=== PATIENT | female | born 1990 | race Two or more races ===

== ENCOUNTER 2020-10-17 14:06 | Emergency (ER) | payer MEDICAID, MEDICARE ==
[~2020-10-17] VITALS: Ht 165.1 cm; Wt 60.3 kg
[2020-10-17 14:09] VITALS: BP 129/89
[2020-10-17] MEDS ORDERED: Ketorolac 30mg Inj IV ONE (14:30)
--- NOTE | 2020-10-17 14:33 | Emergency Room Report ---
History of Present Illness General Chief Complaint: Abdominal Pain Source: Patient Present Illness HPI Patient is a 30-year-old female denies any significant past medical history who presents to the ER co abdominal pain, nausea, non-bloody vomitus x 2 days. She states that the pain is on the right lower side and is worried that it is coming from her ovaries. She denies fever but co chills. She co mild generalized GAMEZ, no blurry vision, no focal weakness. Denies chest pain, sob, or cough. She denies any sick contacts. LMP 2 weeks ago. Denies dysuria or hematuria. HO appendectomy. 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 COVID-19 Screening: Negative COVID-19 COVID-19 Testing Source: nasal Patient History Last Menstrual Period: last week Now: No Reviewed Nursing Documentation: PMH: Agreed; PSxH: Agreed Nursing Documentation-PMH Past Medical History: No Stated History Review of Systems All Other Systems: negative except mentioned in HPI Physical Exam Vital Signs Date Time Temp Pulse Resp B/P (MAP) Pulse Ox O2 Delivery O2 Flow Rate FiO2 10/17/20 14:09 98.8 105 21 129/89 (102) 95 Room Air Sp02 EP Interpretation: reviewed, normal General Appearance: alert, GCS 15, non-toxic, mild distress, other - tearful Head: normocephalic, atraumatic Eyes: bilateral eye normal inspection, bilateral eye PERRL ENT: hearing grossly normal, normal pharynx, no angioedema, normal voice Neck: full range of motion, supple/symm/no masses Respiratory: chest non-tender, lungs clear, normal breath sounds, speaking full sentences Cardiovascular #1: regular rate, rhythm, no edema Gastrointestinal: other - Right suprapubic tenderness to palpation with no guarding or rebound tenderness Rectal: deferred Musculoskeletal: normal range of motion Neurologic: roving technician III-XII nml as tested, oriented x3 Psychiatric: no suicidal/homicidal ideation Skin: no rash Lymphatic: no adenopathy Medical Decision Making Diagnostic Impression: Primary Impression: Ovarian cyst Additional Impression: Leukocytosis ER Course Patient presents with lower abdominal pain and leukocytosis. Ultrasound demonstrates ovarian cyst no evidence for torsion. Patient has free fluid within the cul-de-sac. Likely ruptured cyst causing patient's pain. Patient given IV pain medication as well as antiemetics. Patient advised to follow-up with [facility]. After discussing risks and benefits of further diagnostics, treatment plans, as well as indications for and risks of admission, the patient is agreeable to being discharged home. I have explained that their evaluation and treatment in the emergency department today is an important step towards them achieving better health but that their evaluation today is not intended to replace further evaluation and treatment by a physician in their local clinic. I have explained that while the current findings suggest no immediate life threatening emergency they will require further evaluation and treatment by a physician of their choice in their area. They understand that it will be necessary for them to review the final reports of their ED visit with their clinic physician. We have reviewed indications for return to the Emergency Department. I have explained that additional time may need to pass and/or additional testing as an outpatient may be necessary before a definitive diagnosis can be made. They tell me they are willing to follow up as instructed within the timeframe I recommend. They appear to understand what we discussed. Additionally they understand that if they are unable to be seen by an outpatient physician they are welcome, and in fact should, return to the Emergency Department for a repeat evaluation. The patient is stable at time of discharge. Laboratory Tests Test 10/17/20 14:20 White Blood Count 19.4 K/UL (4.8-10.8) H Red Blood Count 4.80 M/UL (4.20-5.40) Hemoglobin 13.6 G/DL (12.0-16.0) Hematocrit 41.6 % (37.0-47.0) Mean Corpuscular Volume 87 FL (80-99) Mean Corpuscular Hemoglobin 28.3 PG (27.0-31.0) Mean Corpuscular Hemoglobin Concent 32.7 G/DL (32.0-36.0) Red Cell Distribution Width 12.9 % (11.6-14.8) Platelet Count 229 K/UL (150-450) Mean Platelet Volume 10.1 FL (6.5-10.1) Neutrophils (%) (Auto) 86.2 % (45.0-75.0) H Lymphocytes (%) (Auto) 8.0 % (20.0-45.0) L Monocytes (%) (Auto) 4.7 % (1.0-10.0) Eosinophils (%) (Auto) 0.8 % (0.0-3.0) Basophils (%) (Auto) 0.3 % (0.0-2.0) Urine Color Pale yellow Urine Appearance Slightly cloudy Urine pH 6 (4.5-8.0) Urine Specific Ericson 1.010 (1.005-1.035) Urine Protein Negative (NEGATIVE) Urine Glucose (UA) Negative (NEGATIVE) Urine Ketones Negative (NEGATIVE) Urine Blood 2+ (NEGATIVE) H Urine Nitrite Negative (NEGATIVE) Urine Bilirubin Negative (NEGATIVE) Urine Urobilinogen Normal MG/DL (0.0-1.0) Urine Leukocyte Esterase Negative (NEGATIVE) Urine RBC 0-2 /HPF (0 - 2) Urine WBC 0 /HPF (0 - 2) Urine Squamous Epithelial Cells Few /LPF (NONE/OCC) Urine Bacteria Few /HPF (NONE) Urine HCG, Qualitative Negative (NEGATIVE) Sodium Level 142 MMOL/L (136-145) Potassium Level 3.6 MMOL/L (3.5-5.1) Chloride Level 106 MMOL/L (98-107) Carbon Dioxide Level 27 MMOL/L (21-32) Anion Gap 9 mmol/L (5-15) Blood Urea Nitrogen 8 mg/dL (7-18) Creatinine 0.6 MG/DL (0.55-1.30) Estimated Glomerular Filtration Rate > 60 mL/min (>60) Glucose Level 84 MG/DL (74-106) Calcium Level 8.6 MG/DL (8.5-10.1) Magnesium Level 1.8 MG/DL (1.8-2.4) Total Bilirubin 0.5 MG/DL (0.2-1.0) Aspartate Amino Transferase (AST) 22 U/L (15-37) Alanine Aminotransferase (ALT) 44 U/L (12-78) Alkaline Phosphatase 68 U/L (46-116) Total Protein 7.6 G/DL (6.4-8.2) Albumin 4.1 G/DL (3.4-5.0) Globulin 3.5 g/dL Albumin/Globulin Ratio 1.2 (1.0-2.7) Lipase 196 U/L (73-393) Urine Opiates Screen Negative (NEGATIVE) Urine Barbiturates Screen Negative (NEGATIVE) Phencyclidine (PCP) Screen Negative (NEGATIVE) Urine Amphetamines Screen Negative (NEGATIVE) Urine Benzodiazepines Screen Negative (NEGATIVE) Urine Cocaine Screen Negative (NEGATIVE) Urine Marijuana (THC) Screen Positive (NEGATIVE) H Rhythm Strip Diag. Results Rhythm Strip Time: 14:33 EP Interpretation: yes - Laly Victoria MD Rate: 79 bpm Rhythm: NSR, no PVC's, no ectopy Last Vital Signs Date Time Temp Pulse Resp B/P (MAP) Pulse Ox O2 Delivery O2 Flow Rate FiO2 10/17/20 14:09 98.8 105 21 129/89 (102) 95 Room Air Disposition: HOME, SELF-CARE Condition: Stable Scripts Oxycodone/Acetaminophen 5-325* (PERCOCET 5-325 MG TABLET*) 1 Each Tablet 1 TAB ORAL Q4H PRN for For Pain, #10 TAB 0 Refills Prov: Laly Victoria M.D. 10/17/20 Ondansetron* (ZOFRAN*) 4 Mg Tablet 4 MG ORAL Q6H PRN for Nausea & Vomiting, #14 TAB Prov: Laly Victoria M.D. 10/17/20 Ibuprofen* (MOTRIN*) 600 Mg Tablet 600 MG ORAL FOUR TIMES A DAY, #30 TAB 0 Refills Prov: Laly Victoria M.D. 10/17/20 Referrals: [facility],REFERRING (PCP) Additional Instructions: The patient was provided with discharge instructions, notified to follow-up with a primary care doctor and or specialist in the next 24-48 hours, and to return to the ED if they have worsening of their symptoms. Please note that this report is being documented using [employer] technology. This can lead to erroneous entry secondary to incorrect interpretation by the dictating instrument. Laly Victoria M.D. Oct 17, 2020 14:33
[2020-10-17] MEDS ORDERED: fentaNYL 100 mcg/2 mL IV ONE (15:15)
[2020-10-17 15:19] LABS: APPEARANCE,URINE SLIGHTLY CLOUDY; BILIRUBIN, URINE NEGATIVE (NEGATIVE); COLOR,URINE PALE YELLOW; GLUCOSE, URINE (UA) NEGATIVE (NEGATIVE); KETONES,URINE NEGATIVE (NEGATIVE); LEUKOCYTE ESTERASE ,URINE NEGATIVE (NEGATIVE); NITRITE,URINE NEGATIVE (NEGATIVE); PH,URINE 6 (4.5-8.0); PROTEIN,URINE NEGATIVE (NEGATIVE); UROBILINOGEN,URINE NORMAL MG/DL (0.0-1.0)
[2020-10-17 15:27] LABS: ANION GAP 9 mmol/L (5-15); BLOOD UREA NITROGEN 8 mg/dL (7-18); CALCIUM 8.6 MG/DL (8.5-10.1); CARBON DIOXIDE 27 MMOL/L (21-32); CHLORIDE 106 MMOL/L (98-107); CREATININE 0.6 MG/DL (0.55-1.30); POTASSIUM 3.6 MMOL/L (3.5-5.1); SODIUM 142 MMOL/L (136-145)
[2020-10-17 15:31] LABS: ALANINE AMINOTRANSFERASE 44 U/L (12-78); ALBUMIN 4.1 G/DL (3.4-5.0); ALBUMIN/GLOBULIN RATIO 1.2 (1.0-2.7); ALKALINE PHOSPHATASE 68 U/L (46-116); ASPARTATE AMINO TRANSFERASE 22 U/L (15-37); BILIRUBIN,TOTAL 0.5 MG/DL (0.2-1.0)
[2020-10-17 15:40] LABS: HEMATOCRIT 41.6 % (37.0-47.0); HEMOGLOBIN 13.6 G/DL (12.0-16.0); MEAN CORPUSCULAR VOLUME 87 FL (80-99); PLATELET COUNT 229 K/UL (150-450); RED CELL DISTRIBUTION WIDTH 12.9 % (11.6-14.8); WHITE BLOOD COUNT 19.4 K/UL (4.8-10.8)
[2020-10-17 15:44] LABS: BASOPHILS % (AUTO) 0.3 % (0.0-2.0); EOSINOPHILS % (AUTO) 0.8 % (0.0-3.0); MONOCYTES % (AUTO) 4.7 % (1.0-10.0); NEUTROPHILS % (AUTO) 86.2 % (45.0-75.0)
--- NOTE | 2020-10-17 15:52 | Diagnostic Imaging Report ---
Indication: Pelvic pain, test pending Technique: Transabdominal and transvaginal images of the pelvis Doppler interrogation of the ovaries Comparison: none Findings: Uterus is retroverted, measures 6.9 cm length by 3.6 cm AP. No intrauterine demonstrated. 9 mm thick endometrium. The ovaries are normal in size and configuration, demonstrate normal Doppler signal. There is equivocal trace free cul-de-sac fluid Impression: No intrauterine demonstrated. Should test result in being positive, differential considerations include very early , spontaneous , ectopic . Otherwise essentially unremarkable exam
[2020-10-17] MEDS ORDERED: Omnipaque-300 100ml vial INJ PRN (16:00)
--- NOTE | 2020-10-17 16:12 | NUR ---
Patient reports that her right lower anterior flank started hurting baout 8/9 am this morning. The pain and crammping has increased since. Reported to have had nausea, vomiting and diarrhea. Did not have vomiting or diarrhea since coming in to ER. Medicated for pain and nausea. tolerated well. AAOX4. Ambulatory. Independent
[2020-10-17] MEDS ORDERED: Morphine Sulfate 4mg/ml Inj (IV USE ONLY) IVP ONE (17:00)
--- NOTE | 2020-10-17 17:42 | Diagnostic Imaging Report ---
Clinical Indication: Nausea, vomiting, diarrhea, flank pain Technique: No oral contrast utilized, per emergency room physician request IV administration nonionic contrast. Venous phase spiral acquisition obtained through the abdomen and pelvis. Multiplanar reconstructions were generated. Total dose length product 218 mGycm. CTDIvol(s) 4 mGy. Dose reduction achieved using automated exposure control Comparison: none Findings: Lack of enteric contrast limits assessment of the GI tract. The appendix is visualized, but no findings to suggest acute appendicitis are evident. No evidence of diverticulosis or diverticulitis. There is trace free pelvic fluid. No small bowel distention. There is questionable mild wall thickening of the duodenum. A single focally prominent segment of small bowel with slight wall thickening is seen in the left upper quadrant, and there is very questionable mild wall thickening of the proximal jejunum overall. No free intraperitoneal gas. Distal esophagus and stomach are unremarkable. The liver, gallbladder, bile ducts, pancreas, spleen, adrenals, left kidney are unremarkable. Subcentimeter low-attenuation lesion is seen in the right kidney which is too small to characterize. No renal or ureteral calculi, hydronephrosis, or hydroureter. Normal uterus and ovaries. No pelvic mass or adenopathy. Unremarkable bladder. The included lung bases are clear. The bones are unremarkable. Impression: Limited assessment of the GI tract, due to lack of enteric contrast administration Equivocal mild wall thickening of the duodenum and proximal jejunum; if real, could indicate duodenitis/enteritis Trace free pelvic fluid, presumably physiologic Subcentimeter low-attenuation right renal lesion, too small to characterize, most likely benign simple cysts. No further follow-up necessary The CT scanner at [facility] is accredited by the [employer] and the scans are performed using protocols designed to limit radiation exposure to as low as reasonably achievable to attain images of sufficient resolution adequate for diagnostic evaluation.
[2020-10-17] MEDS ORDERED: PERCOCET 5-3251 EACH ORAL (17:45)
[2020-10-17] MEDS ORDERED: ZOFRAN4 M3 ORAL (17:45)
[2020-10-17] MEDS ORDERED: IBUPROFEN600 M1 ORAL (17:45)
== END 2020-10-17 18:05 | disposition home or self-care (01) ==
LOC: EMR 14:19
DX: N83.201 Unspecified ovarian cyst, right side (principal); D72.829 Elevated white blood cell count, unspecified
CPT/HCPCS: 36415; 74177; 76830; 76856; 80053; 80307; 81003; 81025; 83690; 83735; 85025; 96361; 96374; 96375; 99284; J1885; J2270; J2405; J3010; J7030; Q9965